=== PATIENT | female | born 1935 | race Caucasian/White ===

== ENCOUNTER → 2016-07-31 | Outpatient (CLI) | payer MEDICARE, BC ==
[2016-07-31 09:41] LABS: CHLORIDE,CL 103 mmol/L (98-110); SODIUM,NA 140 mmol/L (136-146)
--- NOTE | 2016-08-02 14:08 | ECHO ---
The echocardiogram report can be seen in this patient's EMR in the Reports section. [place]
== END ==
LOC: MW.US 08:57
PROVIDERS: ATTEND Internal Medicine
DX: R60.9 Edema, unspecified (principal); I10 Essential (primary) hypertension; E03.9 Hypothyroidism, unspecified; I42.0 Dilated cardiomyopathy
CPT/HCPCS: 36415; 80053; 80061; 83880; 84443; 85025; 93306

== ENCOUNTER → 2016-08-07 | Outpatient (CLI) | payer MEDICARE, BC | LOC: MW.CHORTHO 08:00 | PROVIDERS: ATTEND Orthopaedic Surgery | DX: M70.61 Trochanteric bursitis, right hip (principal); M70.62 Trochanteric bursitis, left hip; M25.552 Pain in left hip; M25.551 Pain in right hip | CPT/HCPCS: 20610-50; G0463; J1040 ==

== ENCOUNTER → 2016-08-08 | Outpatient (CLI) | payer MEDICARE, BC | LOC: MW.CHIM 08:00 | PROVIDERS: ATTEND Internal Medicine | DX: I10 Essential (primary) hypertension (principal); R60.9 Edema, unspecified; M19.90 Unspecified osteoarthritis, unspecified site; M25.561 Pain in right knee | CPT/HCPCS: 99214 ==

== ENCOUNTER 2020-09-01 18:31 | Emergency (ER) | payer MEDICARE, BC ==
--- NOTE | 2020-09-01 18:54 | EDM.PDOC ---
ED HPI GENERAL MEDICAL PROBLEM - General Chief Complaint: Cardiovascular Problem Stated Complaint: EMT Time Seen by Provider: 09/01/20 18:50 Source of Information: Reports: Patient History Limitations: Reports: No Limitations - History of Present Illness INITIAL COMMENTS - FREE TEXT/NARRATIVE: Patient is a 85-year-old female who presents today for weakness for the past 3 weeks. Patient states she is felt increased weakness decided come in to get checked out. On arrival patient had a heart rate in the 40s. EKG showed a possible complete heart block. Patient at the moment was sitting still is not symptomatic has no chest pain no change in mental status nausea vomiting fever chills. - Related Data Allergies Allergy/AdvReac Type Severity Reaction Status Date / Time No Known Allergies Allergy Verified 09/01/20 18:49 Home Meds: Home Meds Cholecalciferol (Vitamin D3) [Vitamin D3] 1 tab PO DAILY 03/03/14 [History] Hydrochlorothiazide/Losartan [Hyzaar 100-25 MG] 1 tab PO DAILY 03/03/14 [History] Levothyroxine Sodium [Levoxyl] 88 mcg PO ACBRK 03/03/14 [History] Omeprazole 1 tab PO BRK 03/03/14 [History] Mirtazapine 1 tab PO BEDTIME 02/06/15 [History] Pregabalin [Lyrica] 150 cap PO TID 02/06/15 [History] Multivitamin [Multivitamins] 1 tab PO DAILY 02/19/18 [History] Carboxymethylcellulose Sodium [Thera Tears] 1 drop EYEBOTH BID 02/24/18 [History] Acetaminophen [Tylenol Extra Strength] 1,000 mg PO Q6H #100 tablet 02/28/18 [Rx] Aspirin 325 mg PO BID #60 tablet 02/28/18 [Rx] Celecoxib [CeleBREX] 200 mg PO DAILY #30 cap 02/28/18 [Rx] Docusate Sodium [Colace] 100 mg PO BID #60 cap 02/28/18 [Rx] Past Medical History HEENT History: Reports: Hard of Hearing, Impaired Vision Other HEENT History: wears glasses, henok hearing aids Cardiovascular History: Reports: Hypertension. 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: Reports: Musculoskeletal History: Reports: Back Pain, Chronic, Fibromyalgia, Osteoarthritis, Other (See Below) (problems moving left arm full range) Psychiatric History: Reports: Anxiety, Depression Endocrine/Metabolic History: Reports: Hypothyroidism, Obesity/BMI 30+ - Past Surgical History Head Surgeries/Procedures: Reports: None HEENT Surgical History: Reports: Cataract Surgery Female Surgical History: Reports: Hysterectomy Musculoskeletal Surgical History: Reports: Knee Replacement, Shoulder Surgery Other Musculoskeletal Surgeries/Procedures:: henok shoulder surgery, left total knee arthroplasty ('14) Social & Family History - Family History Family Medical History: No Pertinent Family History ED ROS GENERAL - Review of Systems Review Of Systems: See Below Constitutional: Reports: Weakness HEENT: Reports: No Symptoms Respiratory: Reports: No Symptoms Cardiovascular: Reports: No Symptoms Endocrine: Reports: No Symptoms GI/Abdominal: Reports: No Symptoms : Reports: No Symptoms Musculoskeletal: Reports: No Symptoms Skin: Reports: No Symptoms Neurological: Reports: No Symptoms Psychiatric: Reports: No Symptoms Hematologic/Lymphatic: Reports: No Symptoms Immunologic: Reports: No Symptoms ED EXAM, GENERAL - Physical Exam Exam: See Below Exam Limited By: No Limitations General Appearance: Alert, WD/WN, No Apparent Distress Eye Exam: Bilateral Eye: EOMI, PERRL Respiratory/Chest: No Respiratory Distress, Lungs Clear, Normal Breath Sounds Cardiovascular: Bradycardia GI/Abdominal: Normal Bowel Sounds, Soft, Non-Tender Extremities: Normal Inspection Neurological: Alert, Oriented, CN II-XII Intact #1 Interpretation EKG Date: 09/01/20 Time: 18:38 Rhythm: Other (complete heart block) Rate (Beats/Min): 42 ST-T: Normal Course - Vital Signs Last Recorded V/S: Last Vital Signs Temp 96.9 F 09/01/20 18:46 Pulse 41 L 09/01/20 18:46 Resp 17 09/01/20 18:46 BP 148/68 H 09/01/20 18:46 Pulse Ox 95 09/01/20 18:46 - Orders/Labs/Meds Orders: Active Orders 24 hr Category Date Time Status Chest 1V Frontal [CR] Stat Exams 09/01/20 18:49 Ordered Labs: Laboratory Tests 09/01/20 Range/Units 18:34 WBC 6.07 (4.0-11.0) K/uL RBC 4.54 (4.30-5.90) M/uL Hgb 13.6 (12.0-16.0) g/dL Hct 40.4 (36.0-46.0) % MCV 89.0 (80.0-98.0) fL MCH 30.0 (27.0-32.0) pg MCHC 33.7 (31.0-37.0) g/dL RDW Std Deviation 48.8 (28.0-62.0) fl RDW Coeff of Luz Maria 15 (11.0-15.0) % Plt Count 182 (150-400) K/uL MPV 11.40 (7.40-12.00) fL Neut % (Auto) 56.2 (48.0-80.0) % Lymph % (Auto) 32.3 (16.0-40.0) % Hamb[place] % (Auto) 9.2 (0.0-15.0) % Eos % (Auto) 1.8 (0.0-7.0) % Baso % (Auto) 0.5 (0.0-1.5) % Neut # (Auto) 3.4 (1.4-5.7) K/uL Lymph # (Auto) 2.0 (0.6-2.4) K/uL Hamblen # (Auto) 0.6 (0.0-0.8) K/uL Eos # (Auto) 0.1 (0.0-0.7) K/uL Baso # (Auto) 0.0 (0.0-0.1) K/uL Nucleated RBC % 0.0 /100WBC Nucleated RBCs # 0 K/uL - Re-Assessments/Exams Free Text/Narrative Re-Assessment/Exam: 09/01/20 19:09 Patient's been excepted to [facility] for complete heart block. Patient made aware and agreeable to transfer. Departure - Departure Time of Disposition: 19:08 Disposition: DC/Tfer to Acute Hospital 02 Reason for Transfer *Q: Primary PCI Indicated Condition: Good Clinical Impression: Complete heart block Referrals: Juan Brooks MD [Primary Care Provider] - Forms: ED Department Discharge Critical Care Note - Critical Care Note Total Time (mins): 40 Comments: Critical Care Procedure Note Authorized and Performed by: Dr. Calloway Total critical care time: Approximately Due to a high probability of clinically significant, life threatening deterioration, the patient required my highest level of preparedness to intervene emergently and I personally spent this critical care time directly and personally managing the patient. This critical care time included obtaining a history; examining the patient; pulse oximetry; ordering and review of studies; arranging urgent treatment with development of a management plan; evaluation of patient's response to treatment; frequent reassessment; and, discussions with other providers. This critical care time was performed to assess and manage the high probability of imminent, life-threatening deterioration that could result in multi-organ failure. It was exclusive of separately billable procedures and treating other patients and teaching time. Sepsis Event Note (ED) - Evaluation Sepsis Screening Result: No Definite Risk - Focused Exam Vital Signs: Vital Signs Temp Pulse Resp BP Pulse Ox 09/01/20 18:46 96.9 F 41 L 17 148/68 H 95 - My Orders Last 24 Hours: My Active Orders 09/01/20 18:49 Chest 1V Frontal [CR] Stat - Assessment/Plan Last 24 Hours: My Active Orders 09/01/20 18:49 Chest 1V Frontal [CR] Stat Plan: Patient is 85-year-old female who presents today for weakness. Patient was bradycardic on exam so we got EKG did shows a possibly heart block. Patient remained symptomatic with normal blood pressure. Patient placed on pacer pads and will likely require transfer.
[2020-09-01 19:06] LABS: BLOOD UREA NITROGEN,BUN 17 mg/dL (7.0-18.0); CARBON DIOXIDE,CO2 29.2 mmol/L (21.0-32.0); CHLORIDE,CL 95 mmol/L (98-107); GLUCOSE RANDOM 109 mg/dL (74-106); POTASSIUM,K 4.6 mmol/L (3.5-5.1); SODIUM,NA 133 mmol/L (136-145)
--- NOTE | 2020-09-01 19:26 | CR ---
HISTORY: Heart block. COMPARISON: 02/25/2018 FINDINGS: A portable erect AP view of the chest was obtained at 19 01 hours. During the interval, external pacemaker leads have been applied. There is new mild linear atelectasis at the right lung base. The lungs are otherwise clear. The heart remains moderately enlarged. Again seen is rounded density in the retrocardiac region consistent with a large hiatal hernia. The mediastinum is otherwise normal in appearance. A medium caliber cannulated screw is now seen passing from the right humeral head into the proximal right humeral shaft with mild deformity from a healed fracture of the surgical neck of the humerus. This region was not included on the previous study. There is prominent primary osteoarthritis of the left glenohumeral articulation with prominent flattening of the left humeral head. There is also deformity of the surgical neck of the left humerus consistent with an old, healed fracture. This region was not included on the previous study. IMPRESSION: New mild linear atelectasis in the lateral right lung base. Stable moderate cardiomegaly. Stable large hiatal hernia. Postoperative changes in the right shoulder and prominent degenerative changes in the left shoulder. Dictated by Sunday Puentes MD @ 09/01/2020 7:24:[address] Sunady Puentes @ Sep 01 2020 7:24PM
[2020-09-01 19:54] VITALS: BP 181/73; PULSE 39
== END 2020-09-01 19:55 ==
LOC: MW.ED 18:31
DX: I44.2 Atrioventricular block, complete (principal); I10 Essential (primary) hypertension; E03.9 Hypothyroidism, unspecified; K21.9 Gastro-esophageal reflux disease without esophagitis; E66.9 Obesity, unspecified; Z68.36 Body mass index [BMI] 36.0-36.9, adult; Z79.899 Other long term (current) drug therapy; Z79.82 Long term (current) use of aspirin
CPT/HCPCS: 36415; 51702; 71045; 71045-26; 80053; 82550; 84443; 84484; 85025; 93005; 99285-25; 99291

== ENCOUNTER 2020-10-31 16:00 | Emergency (ER) | payer MEDICARE, BC ==
[2020-10-31] MEDS ORDERED: Sodium Chloride 0.9% 10 ML Syringe FLUSH PRN (16:46)
[2020-10-31] MEDS ORDERED: Sodium Chloride 0.9% 2.5 ML Syringe FLUSH PRN (16:46)
[2020-10-31] MEDS ORDERED: Apixaban 5 MG Tab PO ONE (17:02)
[2020-10-31 17:09] LABS: CARBON DIOXIDE,CO2 29.3 mmol/L (21.0-32.0); POTASSIUM,K 5.1 mmol/L (3.5-5.1)
--- NOTE | 2020-10-31 17:09 | EDM.PDOC ---
ED HPI GENERAL MEDICAL PROBLEM - General Chief Complaint: Lower Extremity Injury/Pain Stated Complaint: BLOOD CLOTS IN LOWER LEGS, [place] REFERRAL Time Seen by Provider: 10/31/20 16:12 - History of Present Illness INITIAL COMMENTS - FREE TEXT/NARRATIVE: HISTORY AND PHYSICAL: History of present illness: This is an 85-year-old female with history significant for TIA, CHF, CAD, recent pacemaker placement, who presents to the ER today secondary to evaluation for bilateral DVTs. Patient was sent from [place] for having multiple right lower extremity deep venous occlusions as well as venous occlusions in her left lower extremity in the distal left SFA and popliteal veins. Patient reports that she had a recent long car ride to [place]. She reports shortly thereafter she started experiencing swelling to her right lower extremity greater than her left. She was seen at [place] today by Dr. Yee who ordered an ultrasound and a bilateral DVTs were identified. Family reports that they have discussed the case with Dr. Yee and they had decided on outpatient management with oral Eliquis rather than transfer to the ED. We are able to contact Dr. Yee who verified the patient's recollection and was surprised that the patient was sent here to the ED for further evaluation of her DVT. Dr. Yee reports that his plan was to initiate anticoagulation therapy with Eliquis and would assure appropriate outpatient f ollow-up. At this time, the patient is denying any symptomatology. Patient is denying any recent fevers, shakes, chills, nausea, vomiting, diarrhea, dysuria, frequency, urgency, chest pain, shortness of breath, abdominal pain. Review of systems: As per history of present illness and below otherwise all systems reviewed and negative. Past medical history: As per history of present illness and as reviewed below otherwise noncontributory. Surgical history: As per history of present illness and as reviewed below otherwise noncontributory. Social history: No reported history of drug abuse. Family history: As per history of present illness and as reviewed below otherwise noncontributory. Physical exam: HEENT: Atraumatic, normocephalic, pupils reactive, negative for conjunctival pallor or scleral icterus, mucous membranes moist, throat clear, neck supple, nontender, trachea midline. Lungs: Clear to auscultation, breath sounds equal bilaterally, chest nontender. Heart: S1S2, regular, negative for clicks, rubs, or JVD. Abdomen: Soft, nondistended, nontender. Negative for masses or hepatosplenomegaly. Negative for costovertebral tenderness. Pelvis: Stable nontender. Genitourinary: Deferred. Rectal: Deferred. Extremities: Atraumatic, negative for cords or calf pain. Neurovascular unremarkable. Neuro: Awake, alert, oriented. Cranial nerves II through XII unremarkable. Cerebellum unremarkable. Motor and sensory unremarkable throughout. Exam nonfocal. Diagnostics: Ultrasound report per Dr. Yee: Patient with extensive DVT occlusions in the right lower extremity. Patient has occlusion in the distal left SFA and popliteal vein. Therapeutics: Eliquis 10 mg p.o. Assessment and plan: This is an 85-year-old female who presents ER today for further evaluation of bilateral DVTs identified by ultrasound earlier today. After discussion with patient's primary care physician over at [place], it appears that there was likely miscommunication at the facility and patient was transferred to the ED. Dr. Yee reports that he would like us to initiate Eliquis therapy and feels comfortable with plan to discharge her back to [place] and he will continue to assure continuity of care and management of her DVT as an outpatient. His CBC, CMP and INR and PTT have been ordered. Will await those results. Patient currently is on Celebrex. Will recommend discontinuation of Celebrex and NSAIDs while on anticoagulation therapy. Reassessment at the time of disposition demonstrates that the patient is in no acute distress. The patient has remained stable throughout the entire ED visit and is without objective evidence for acute process requiring urgent intervention or hospitalization. The patient is stable for discharge, counseling is provided as documented above, discussed symptomatic treatment and specific conditions for return. I have spoken with the patient/caregiver and discussed todays findings, in addition to providing specific details for the plan of care. Questions are answered and there is agreement with the plan. Definitive disposition and diagnosis as appropriate pending reevaluation and review of above. bilateral legs Pain Score (Numeric/FACES): 3 - Related Data Allergies Allergy/AdvReac Type Severity Reaction Status Date / Time No Known Allergies Allergy Verified 10/31/20 16:03 Home Meds: Home Meds Cholecalciferol (Vitamin D3) [Vitamin D3] 1 tab PO DAILY 03/03/14 [History] Hydrochlorothiazide/Losartan [Hyzaar 100-25 MG] 1 tab PO DAILY 03/03/14 [History] Levothyroxine Sodium [Levoxyl] 88 mcg PO ACBRK 03/03/14 [History] Omeprazole 1 tab PO BRK 03/03/14 [History] Mirtazapine 1 tab PO BEDTIME 02/06/15 [History] Pregabalin [Lyrica] 150 cap PO TID 02/06/15 [History] Multivitamin [Multivitamins] 1 tab PO DAILY 02/19/18 [History] Carboxymethylcellulose Sodium [Thera Tears] 1 drop EYEBOTH BID 02/24/18 [History] Acetaminophen [Tylenol Extra Strength] 1,000 mg PO Q6H #100 tablet 02/28/18 [Rx] Aspirin 325 mg PO BID #60 tablet 02/28/18 [Rx] Celecoxib [CeleBREX] 200 mg PO DAILY #30 cap 02/28/18 [Rx] Docusate Sodium [Colace] 100 mg PO BID #60 cap 02/28/18 [Rx] Past Medical History HEENT History: Reports: Cataract, Hard of Hearing, Impaired Vision, Other (See Below) Other HEENT History: wears glasses, henok hearing aids, dysphagia Cardiovascular History: Reports: Heart Failure, Hypertension, Other (See Below) Other Cardiovascular History: AV block, bradycardia, other specificed rheumatic heart disease, nonrheumatic aoritc valve disorders, Respiratory History: Reports: SOB Gastrointestinal History: Reports: GERD Other Gastrointestinal History: diverticulitis, Genitourinary History: Reports: Other (See Below) Other Genitourinary History: stress incontinence RN GERIATRIC History: Reports: Musculoskeletal History: Reports: Back Pain, Chronic, Fibromyalgia, Osteoarthritis, Other (See Below) Neurological History: Reports: CVA, Other (See Below) Other Neuro History: encephalopathy Psychiatric History: Reports: Anxiety, Depression Endocrine/Metabolic History: Reports: Hypothyroidism, Obesity/BMI 30+ Hematologic History: Reports: None Immunologic History: Reports: None Oncologic (Cancer) History: Reports: None Dermatologic History: Reports: None - Infectious Disease History Infectious Disease History: Reports: None - Past Surgical History Head Surgeries/Procedures: Reports: None HEENT Surgical History: Reports: Cataract Surgery Cardiovascular Surgical History: Reports: None Respiratory Surgical History: Reports: None GI Surgical History: Reports: None Female Surgical History: Reports: Hysterectomy Endocrine Surgical History: Reports: None Neurological Surgical History: Reports: None Musculoskeletal Surgical History: Reports: Knee Replacement, Shoulder Surgery Other Musculoskeletal Surgeries/Procedures:: henok shoulder surgery, left total knee arthroplasty ('14) Oncologic Surgical History: Reports: None Dermatological Surgical History: Reports: None Social & Family History - Family History Family Medical History: No Pertinent Family History - Tobacco Use Tobacco Use Status *Q: Never Tobacco User - Recreational Drug Use Recreational Drug Use: No Review of Systems - Review of Systems Review Of Systems: See Below ED EXAM, GENERAL - Physical Exam Exam: See Below Course - Vital Signs Last Recorded V/S: Last Vital Signs Temp 97.2 F 10/31/20 16:04 Pulse 70 10/31/20 16:04 Resp 17 10/31/20 16:04 BP 126/58 L 10/31/20 16:04 Pulse Ox 88 L 10/31/20 16:04 - Orders/Labs/Meds Orders: Active Orders 24 hr Category Date Time Status COMPREHENSIVE METABOLIC PN,CMP [CHEM] Stat Lab 10/31/20 16:13 Received INR,PT,PROTHROMBIN TIME [COAG] Stat Lab 10/31/20 16:13 Received PTT,PARTIAL THROMBOPLSTIN TIME [COAG] Stat Lab 10/31/20 16:13 Received Sodium Chloride 0.9% [Saline Flush] Med 10/31/20 16:46 Active 10 ml FLUSH ASDIRECTED PRN Sodium Chloride 0.9% [Saline Flush] Med 10/31/20 16:46 Active 2.5 ml FLUSH ASDIRECTED PRN Saline Lock Insert [OM.PC] Stat Oth 10/31/20 16:46 Ordered Medication Orders Sodium Chloride (Sodium Chloride 0.9% 10 Ml Syringe) 10 ml FLUSH ASDIRECTED PRN PRN Reason: Keep Vein Open Sodium Chloride (Sodium Chloride 0.9% 2.5 Ml Syringe) 2.5 ml FLUSH ASDIRECTED PRN PRN Reason: Keep Vein Open Labs: Laboratory Tests 10/31/20 Range/Units 16:13 WBC 7.41 (4.0-11.0) K/uL RBC 4.40 (4.30-5.90) M/uL Hgb 13.1 (12.0-16.0) g/dL Hct 40.6 (36.0-46.0) % MCV 92.3 (80.0-98.0) fL MCH 29.8 (27.0-32.0) pg MCHC 32.3 (31.0-37.0) g/dL RDW Std Deviation 55.4 (28.0-62.0) fl RDW Coeff of Luz Maria 17 H (11.0-15.0) % Plt Count 224 (150-400) K/uL MPV 9.70 (7.40-12.00) fL Neut % (Auto) 62.1 (48.0-80.0) % Lymph % (Auto) 23.5 (16.0-40.0) % [place] % (Auto) 10.1 (0.0-15.0) % Eos % (Auto) 3.9 (0.0-7.0) % Baso % (Auto) 0.4 (0.0-1.5) % Neut # (Auto) 4.6 (1.4-5.7) K/uL Lymph # (Auto) 1.7 (0.6-2.4) K/uL Mclean # (Auto) 0.8 (0.0-0.8) K/uL Eos # (Auto) 0.3 (0.0-0.7) K/uL Baso # (Auto) 0.0 (0.0-0.1) K/uL Meds: Medications Generic Name Dose Route Start Last Admin Trade Name Freq PRN Reason Stop Dose Admin Sodium Chloride 10 ml 10/31/20 16:46 Sodium Chloride 0.9% 10 Ml Syringe FLUSH ASDIRECTED PRN Keep Vein Open Sodium Chloride 2.5 ml 10/31/20 16:46 Sodium Chloride 0.9% 2.5 Ml Syringe FLUSH ASDIRECTED PRN Keep Vein Open Discontinued Medications Generic Name Dose Route Start Last Admin Trade Name Freq PRN Reason Stop Dose Admin Apixaban 10 mg 10/31/20 17:02 Apixaban 5 Mg Tab PO 10/31/20 17:03 ONETIME ONE Departure - Departure Time of Disposition: 17:08 Disposition: Home, Self-Care 01 Condition: Good Clinical Impression: Bilateral deep vein thromboses Qualifiers: Chronicity: acute - Discharge Information Instructions: Deep Vein Thrombosis Referrals: Cecil Weir MD [Primary Care Provider] - Additional Instructions: You were seen and evaluated in the ER today for assessment of your deep vein t hrombosis. After discussion with Dr. Yee, it appears that he would like you to be treated as an outpatient with oral anticoagulation therapy for your deep vein thromboses. We have initiated treatment with Eliquis 10 mg in the ED. Dr. Yee has sent the prescription to [facility] to initiate continued treatment and management of your deep vein thrombosis. Please avoid any NSAIDs such as your Celebrex while on anticoagulation therapy. The following information is given to patients seen in the emergency department who are being discharged to home. This information is to outline your options for follow-up care. We provide all patients seen in our emergency department with a follow-up referral. The need for follow-up, as well as the timing and circumstances, are variable depending upon the specifics of your emergency department visit. If you don't have a primary care physician on staff, we will provide you with a referral. We always advise you to contact your personal physician following an emergency department visit to inform them of the circumstance of the visit and for follow-up with them and/or the need for any referrals to a consulting specialist. The emergency department will also refer you to a specialist when appropriate. This referral assures that you have the opportunity for follow-up care with a specialist. All of these measure are taken in an effort to provide you with optimal care, which includes your follow-up. Under all circumstances we always encourage you to contact your private physician who remains a resource for coordinating your care. When calling for follow-up care, please make the office aware that this follow-up is from your recent emergency room visit. If for any reason you are refused follow-up, please contact the [facility] Emergency Department at and asked to speak to the emergency department charge nurse. [facility] [address] [place] [id number] [address] Sepsis Event Note (ED) - Evaluation Sepsis Screening Result: No Definite Risk - Focused Exam Vital Signs: Vital Signs Temp Pulse Resp BP Pulse Ox 06/28/21 16:04 97.2 F 70 17 126/58 L 88 L - My Orders Last 24 Hours: My Active Orders 10/31/20 16:13 COMPREHENSIVE METABOLIC PN,CMP [CHEM] Stat INR,PT,PROTHROMBIN TIME [COAG] Stat PTT,PARTIAL THROMBOPLSTIN TIME [COAG] Stat 10/31/20 16:46 Sodium Chloride 0.9% [Saline Flush] 10 ml FLUSH ASDIRECTED PRN Sodium Chloride 0.9% [Saline Flush] 2.5 ml FLUSH ASDIRECTED PRN Saline Lock Insert [OM.PC] Stat - Assessment/Plan Last 24 Hours: My Active Orders 10/31/20 16:13 COMPREHENSIVE METABOLIC PN,CMP [CHEM] Stat INR,PT,PROTHROMBIN TIME [COAG] Stat PTT,PARTIAL THROMBOPLSTIN TIME [COAG] Stat 10/31/20 16:46 Sodium Chloride 0.9% [Saline Flush] 10 ml FLUSH ASDIRECTED PRN Sodium Chloride 0.9% [Saline Flush] 2.5 ml FLUSH ASDIRECTED PRN Saline Lock Insert [OM.PC] Stat
[2020-10-31 17:49] VITALS: BP 111/54; PULSE 66
== END 2020-10-31 18:15 | disposition home or self-care (01) ==
LOC: MW.ED 16:00
DX: I82.4Z3 Acute embolism and thrombosis of unspecified deep veins of distal lower extremity, bilateral (principal); E03.9 Hypothyroidism, unspecified; E66.9 Obesity, unspecified; I11.0 Hypertensive heart disease with heart failure; I50.9 Heart failure, unspecified; Z68.31 Body mass index [BMI] 31.0-31.9, adult; Z79.899 Other long term (current) drug therapy; Z79.82 Long term (current) use of aspirin
CPT/HCPCS: 36415; 80053; 85025; 85610; 85730; 99284; A9270

== ENCOUNTER 2023-08-30 16:28 | Inpatient (IN) | payer MEDICARE, BC ==
[2023-08-30 17:37] LABS: BASOPHILS ABSOLUTE AUTO 0.05 K/uL (0.00-0.20); BASOPHILS PERCENT AUTO 0.6 % (0.0-1.0); EOSINOPHILS ABSOLUTE AUTO 0.09 K/uL (0.00-0.45); EOSINOPHILS PERCENT AUTO 1.1 % (0.0-6.0); HEMATOCRIT 35.6 % (37.0-47.0); HEMOGLOBIN 11.6 g/dL (12.0-16.0); IMMATURE GRAN ABSOLUTE AUTO 0.03 K/uL (0.00-0.05); IMMATURE GRAN PERCENT AUTO 0.4 % (0.0-0.4); LYMPHOCYTES ABSOLUTE AUTO 1.88 K/uL (1.00-4.80); LYMPHOCYTES PERCENT AUTO 22.1 % (24.0-44.0); MEAN CORPUSCULAR HEMOGLOBIN 27.9 pg (28.0-32.0); MEAN CORPUSCULAR HGB CONC 32.6 g/dL (32.0-36.0); MEAN CORPUSCULAR VOLUME 85.6 fL (83.0-99.0); MEAN PLATELET VOLUME 8.7 fL (9.4-12.3); MONOCYTES ABSOLUTE AUTO 0.66 K/uL (0.00-0.80); MONOCYTES PERCENT AUTO 7.8 % (0.0-8.0); NEUTROPHILS ABSOLUTE AUTO 5.78 K/uL (1.80-7.70); PLATELET COUNT,PLT 249 K/uL (150-400); RED BLOOD CELL COUNT 4.16 M/uL (4.10-5.30); WHITE BLOOD CELL COUNT,WBC 8.49 K/uL (3.9-11.3)
[2023-08-30 18:05] LABS: A/G RATIO 0.9 (0.9-1.6); ALANINE AMINOTRANSFERASE,ALT 21 IU/L (14-63); ALBUMIN 3.6 g/dL (3.4-5.0); ALKALINE PHOSPHATASE 106 U/L (46-116); ASPARTATE AMNIOTRANSFERASE,AST 20 IU/L (15-37); BILIRUBIN TOTAL 0.4 mg/dL (0.2-1.0); BLOOD UREA NITROGEN,BUN 33 mg/dL (7.0-18.0); CALCIUM 9.1 mg/dL (8.5-10.1); CARBON DIOXIDE,CO2 27.2 mmol/L (21.0-32.0); CHLORIDE,CL 98 mmol/L (98-107); CREATININE 1.6 mg/dL (0.6-1.0); EST CRCL DRUG DOSING (CG) 17.99 mL/min; GLUCOSE RANDOM 113 mg/dL (74-106); MAGNESIUM 2.1 mg/dL (1.8-2.4); POTASSIUM,K 5.3 mmol/L (3.5-5.1); PROTEIN TOTAL,TP 7.4 g/dL (6.4-8.2); SODIUM,NA 132 mmol/L (136-145)
[2023-08-30 18:07] LABS: ESTIMATED GFR 31 mL/min (>60)
[2023-08-30] MEDS: Iopamidol 755 MG/ML 500 ML Multipack Bottle IVPUSH ONE (20:22)
[2023-08-30] MEDS: Acetaminophen 325 MG Tab PO ONE (21:10)
[2023-08-30] MEDS: Cefepime 1 GM in Sodium Chloride 0.9% 50 ML IV ONE (22:16)
[2023-08-30] MEDS: Sodium Chloride 0.9% 500 ML IV SCH (22:16)
[2023-08-30] MEDS ORDERED: oxyCODONE 5 MG Tab PO PRN (23:57)
[2023-08-31] MEDS: Apixaban 5 MG Tab PO SCH (01:02)
[2023-08-31 06:29] LABS: BASOPHILS ABSOLUTE AUTO 0.02 K/uL (0.00-0.20); BASOPHILS PERCENT AUTO 0.3 % (0.0-1.0); EOSINOPHILS ABSOLUTE AUTO 0.05 K/uL (0.00-0.45); EOSINOPHILS PERCENT AUTO 0.7 % (0.0-6.0); HEMATOCRIT 33.2 % (37.0-47.0); HEMOGLOBIN 10.8 g/dL (12.0-16.0); IMMATURE GRAN ABSOLUTE AUTO 0.02 K/uL (0.00-0.05); IMMATURE GRAN PERCENT AUTO 0.3 % (0.0-0.4); LYMPHOCYTES ABSOLUTE AUTO 1.32 K/uL (1.00-4.80); LYMPHOCYTES PERCENT AUTO 19.6 % (24.0-44.0); MEAN CORPUSCULAR HEMOGLOBIN 27.9 pg (28.0-32.0); MEAN CORPUSCULAR HGB CONC 32.5 g/dL (32.0-36.0); MEAN CORPUSCULAR VOLUME 85.8 fL (83.0-99.0); MONOCYTES ABSOLUTE AUTO 0.53 K/uL (0.00-0.80); MONOCYTES PERCENT AUTO 7.9 % (0.0-8.0); NEUTROPHILS PERCENT AUTO 71.2 % (41.0-71.0); PLATELET COUNT,PLT 228 K/uL (150-400); RED BLOOD CELL COUNT 3.87 M/uL (4.10-5.30); WHITE BLOOD CELL COUNT,WBC 6.74 K/uL (3.9-11.3)
[2023-08-31 06:52] LABS: CALCIUM 8.7 mg/dL (8.5-10.1); CARBON DIOXIDE,CO2 27.1 mmol/L (21.0-32.0); CREATININE 1.4 mg/dL (0.6-1.0); EST CRCL DRUG DOSING (CG) 20.56 mL/min; POTASSIUM,K 4.5 mmol/L (3.5-5.1)
[2023-08-31] MEDS: Levothyroxine 88 MCG Tab PO SCH (07:03)
[2023-08-31] MEDS: Omeprazole 20 MG Cap.CR PO SCH (07:03)
[2023-08-31] MEDS: Acetaminophen 325 MG Tab PO PRN (07:25)
[2023-08-31] MEDS ORDERED: Furosemide 20 MG Tab PO SCH (08:00)
[2023-08-31] MEDS ORDERED: Apixaban 5 MG Tab PO SCH (09:00)
[2023-08-31] MEDS: amLODIPine 5 MG Tab PO SCH (09:17)
[2023-08-31] MEDS: atorvaSTATin 10 MG Tab PO SCH (09:17)
[2023-08-31] MEDS: traMADol 50 MG Tab PO PRN (09:17)
[2023-08-31] MEDS: Carboxymethylcellulose Sodium 0.5% Ophth Soln 0.4 ML UD Box of 30 EYEBOTH SCH (09:18)
[2023-08-31] MEDS: Carvedilol 6.25 MG Tab PO SCH (09:18)
[2023-08-31] MEDS: Sertraline 25 MG Tab PO SCH (09:18)
[2023-08-31 12:23] VITALS: BP 128/59; PULSE 70
== END 2023-08-31 14:00 | disposition home or self-care (01) | DRG 291 ==
LOC: MW.ED 16:28 → MW.MS 22:10
PROVIDERS: ADMIT Internal Medicine; ATTEND Internal Medicine
DX: J18.9 Pneumonia, unspecified organism (principal); I11.0 Hypertensive heart disease with heart failure; I50.9 Heart failure, unspecified; I50.31 Acute diastolic (congestive) heart failure; E87.1 Hypo-osmolality and hyponatremia; I82.512 Chronic embolism and thrombosis of left femoral vein; I82.532 Chronic embolism and thrombosis of left popliteal vein; J98.11 Atelectasis; K21.9 Gastro-esophageal reflux disease without esophagitis; M79.7 Fibromyalgia; Z68.36 Body mass index [BMI] 36.0-36.9, adult; Z75.8 Other problems related to medical facilities and other health care; H91.90 Unspecified hearing loss, unspecified ear; H54.7 Unspecified visual loss; M54.9 Dorsalgia, unspecified; G89.29 Other chronic pain; M19.90 Unspecified osteoarthritis, unspecified site; F41.9 Anxiety disorder, unspecified; F32.A Depression, unspecified; E03.9 Hypothyroidism, unspecified; E66.9 Obesity, unspecified; Z96.659 Presence of unspecified artificial knee joint; Z79.01 Long term (current) use of anticoagulants; Z95.0 Presence of cardiac pacemaker; Z86.73 Personal history of transient ischemic attack (TIA), and cerebral infarction without residual deficits; Z79.82 Long term (current) use of aspirin; Z79.899 Other long term (current) drug therapy; Z87.19 Personal history of other diseases of the digestive system; Z68.37 Body mass index [BMI] 37.0-37.9, adult; Z98.49 Cataract extraction status, unspecified eye; Z90.710 Acquired absence of both cervix and uterus; Z98.890 Other specified postprocedural states
CPT/HCPCS: 36415; 71045; 71275; 73501; 73551; 80053; 83735; 83880; 84484; 85025; 93005; 93970; A9270; Q9967; 80048; 93010; 99285; J0692; J3490; J7040

== ENCOUNTER 2023-09-06 08:21 | Emergency (ER) | payer MEDICARE, BC ==
[2023-09-06] MEDS: Ondansetron 4 MG Tab.DIS PO ONE (08:55)
[2023-09-06 09:04] LABS: BASOPHILS ABSOLUTE AUTO 0.04 K/uL (0.00-0.20); BASOPHILS PERCENT AUTO 0.5 % (0.0-1.0); EOSINOPHILS ABSOLUTE AUTO 0.07 K/uL (0.00-0.45); EOSINOPHILS PERCENT AUTO 0.8 % (0.0-6.0); HEMATOCRIT 31.9 % (37.0-47.0); HEMOGLOBIN 10.3 g/dL (12.0-16.0); IMMATURE GRAN ABSOLUTE AUTO 0.02 K/uL (0.00-0.05); IMMATURE GRAN PERCENT AUTO 0.2 % (0.0-0.4); LYMPHOCYTES ABSOLUTE AUTO 1.23 K/uL (1.00-4.80); LYMPHOCYTES PERCENT AUTO 14.4 % (24.0-44.0); MEAN CORPUSCULAR HEMOGLOBIN 28.1 pg (28.0-32.0); MEAN CORPUSCULAR HGB CONC 32.3 g/dL (32.0-36.0); MEAN CORPUSCULAR VOLUME 86.9 fL (83.0-99.0); MEAN PLATELET VOLUME 8.6 fL (9.4-12.3); MONOCYTES ABSOLUTE AUTO 0.46 K/uL (0.00-0.80); MONOCYTES PERCENT AUTO 5.4 % (0.0-8.0); NEUTROPHILS PERCENT AUTO 78.7 % (41.0-71.0); PLATELET COUNT,PLT 234 K/uL (150-400); RED BLOOD CELL COUNT 3.67 M/uL (4.10-5.30); WHITE BLOOD CELL COUNT,WBC 8.52 K/uL (3.9-11.3)
[2023-09-06] MEDS: Oxymetazoline 0.05% Nasal Spray 30 ML Bottle NAS ONE (09:52)
[2023-09-06] MEDS: Albuterol/Ipratropium 3.0-0.5 MG/3 ML Neb Soln NEB ONE (10:51)
[2023-09-06 18:21] VITALS: BP 149/66; PULSE 83
== END 2023-09-06 12:30 | disposition home or self-care (01) ==
LOC: MW.ED 08:21
DX: R04.0 Epistaxis (principal); I11.0 Hypertensive heart disease with heart failure; I50.9 Heart failure, unspecified; K21.9 Gastro-esophageal reflux disease without esophagitis; E03.9 Hypothyroidism, unspecified; E66.9 Obesity, unspecified; Z86.73 Personal history of transient ischemic attack (TIA), and cerebral infarction without residual deficits; Z90.710 Acquired absence of both cervix and uterus; Z79.82 Long term (current) use of aspirin; Z79.899 Other long term (current) drug therapy; Z79.01 Long term (current) use of anticoagulants; Z75.8 Other problems related to medical facilities and other health care; Z68.36 Body mass index [BMI] 36.0-36.9, adult
CPT/HCPCS: 30903; 36415; 71045; 85025; 99284; A9270; 99283; J7620-GY